=== PATIENT | female | born 1980 | race Caucasian/White ===

== ENCOUNTER 2023-10-23 12:02 | Day surgery (SDC) | payer OTHER ==
[~2023-10-23] VITALS: Ht 162.6 cm; Wt 113.8 kg
[2023-10-23] VITALS (24 sets, daily range): BP systolic 110–192; BP diastolic 11–145
[~2023-10-23 12:02] MED LIST: AMLO5 PO; BENZ100A PO; COLESTID1 G1 PO; FLUTICASONE-SA1 EAC1 INH; IPRAT-ALBUT 0.5-3 ML IH; TRELEGY ELLIPT1 EACH IH
[2023-10-23] MEDS ORDERED: EpiNEPhrine 1 MG/1 ML 1ML Vial ONE (12:34)
[2023-10-23] MEDS ORDERED: Midazolam HCl 1MG / ML 2ML Vial ONE ×2 (12:35→13:35)
[2023-10-23] MEDS ORDERED: Lactated Ringer's 1,000 ML IV SCH (12:35)
[2023-10-23] MEDS ORDERED: Lidocaine 2% Jelly Uro-Jet ONE (12:35)
[2023-10-23] MEDS ORDERED: propofoL 40 ML IV ONE (12:35)
[2023-10-23] MEDS ORDERED: Lidocaine 2% 5 ML SDV ONE ×2 (12:35→12:53)
[2023-10-23] MEDS ORDERED: Lidocaine HCl 4% 5 ML SDA ONE (12:35)
--- NOTE | 2023-10-23 12:59 | NUR ---
Ambulatory in Day Surgery History, Chart, Medications and Allergies reviewed before start of procedure. Pre-Op teaching done. Pt verbalizes understanding. Patient States Post-Procedure ride home has been arranged.
--- NOTE | 2023-10-23 13:14 | NUR ---
10/23/23 1314 Karl Malin HISTORY, CHART, MEDICATIONS AND ALLERGIES REVIEWED BEFORE START OF PROCEDURE. PATIENT CONFIRMS NPO STATUS AND AGREES WITH SCHEDULED PROCEDURE. 3-LEAD EKG REVIEWED WITH PHYSICIAN PRIOR TO START OF PROCEDURE. MONITOR INTACT WITH CONTINUOUS PULSE OXIMETRY,CAPNOGRAPHY, 3-LEAD EKG, INTERMITTENT BP. SUPPLEMENTAL O2 TO BE TITRATED THROUGHOUT PROCEDURE TO MAINTAIN O2 SATURATION ABOVE 90%. PATIENT DETERMINED TO BE ASA APPROPRIATE FOR PROPOFOL SEDATION PRIOR TO START OF PROCEDURE BY DR. HERRERA.
--- NOTE | 2023-10-23 16:03 | NUR ---
Patient up to Ambulate independently. Gait steady. Discharge instructions reviewed with patient. Patient verbalizes understanding. Copy given to patient to take home, WELL . Patient States Post-Procedure ride home has been arranged. Discharged via wheelchair to private car for ride home. PT TOLERATING ICE CHIPS. VSS. PT COUGHING LESS AND APPEARS RELAXED. PT REPORTS READY TO GO HOME.
== END 2023-10-23 16:03 | disposition home or self-care (01) ==
LOC: ORD 12:02 → ORSCMMR 12:02 → ORD 13:30
PROVIDERS: Internal Medicine Critical Care Medicine
PROC: 0B9C8ZX Drainage of Right Upper Lung Lobe, Via Natural or Artificial Opening Endoscopic, Diagnostic (ICD-10-PCS; principal; 2023-10-23 13:30)
DX: R91.8 Other nonspecific abnormal finding of lung field (principal); Z79.899 Other long term (current) drug therapy; J45.909 Unspecified asthma, uncomplicated; E66.01 Morbid (severe) obesity due to excess calories; Z68.41 Body mass index [BMI] 40.0-44.9, adult
CPT/HCPCS: 87070; 87205; 88108; 88184; 88185; 88312; J0171; J2001; J2250; J2704; J7120